=== PATIENT | female | born 1985 | race Two or more races ===

== ENCOUNTER → 2019-12-15 | Emergency (ER) | payer OTHER ==
[~2019-12-15] VITALS: Ht 165.1 cm; Wt 73.5 kg
[~2019-12-15] MED LIST: D3 + K2 DOTS 11 EACH; FOLIC ACID0.8 M1; PRENATAL + DHA1 EAC1
== END | disposition home or self-care (01) ==
LOC: ER 00:37
DX: O26.892 Other specified pregnancy related conditions, second trimester (principal); R10.2 Pelvic and perineal pain; Z34.02 Encounter for supervision of normal first pregnancy, second trimester

== ENCOUNTER → 2020-04-03 | Outpatient (CLI) | payer OTHER | END | disposition home or self-care (01) | LOC: PRENATAL 11:30 | PROVIDERS: ATTEND Obstetrics & Gynecology | DX: O35.3XX1 Maternal care for (suspected) damage to fetus from viral disease in mother, fetus 1 (principal); O99.89 Other specified diseases and conditions complicating pregnancy, childbirth and the puerperium; O09.523 Supervision of elderly multigravida, third trimester; O34.43 Maternal care for other abnormalities of cervix, third trimester; O26.613 Liver and biliary tract disorders in pregnancy, third trimester ==

== ENCOUNTER 2020-06-04 14:13 | Inpatient (IN) | payer OTHER ==
[~2020-06-04] VITALS: Ht 165.1 cm; Wt 88.5 kg
== END 2020-06-07 13:50 | disposition home or self-care (01) | DRG 807 ==
LOC: LDR 14:13 → OB/GYN 06-05 17:13
PROVIDERS: ADMIT Obstetrics & Gynecology; ATTEND Obstetrics & Gynecology
PROC: 10E0XZZ Delivery of Products of Conception, External Approach (ICD-10-PCS; principal; 2020-06-04)
PROC: 10907ZC Drainage of Amniotic Fluid, Therapeutic from Products of Conception, Via Natural or Artificial Opening (ICD-10-PCS; 2020-06-04)
PROC: 3E0P7VZ Introduction of Hormone into Female Reproductive, Via Natural or Artificial Opening (ICD-10-PCS; 2020-06-04)
PROC: 3E033VJ Introduction of Other Hormone into Peripheral Vein, Percutaneous Approach (ICD-10-PCS; 2020-06-04)
PROC: 4A1HXCZ Monitoring of Products of Conception, Cardiac Rate, External Approach (ICD-10-PCS; 2020-06-04)
DX: O80 Encounter for full-term uncomplicated delivery (principal); Z37.0 Single live birth; Z3A.38 38 weeks gestation of pregnancy